=== PATIENT | male | born 1960 | race Caucasian/White ===

== ENCOUNTER 2020-12-12 18:06 | Observation (INO) | payer BC ==
--- NOTE | 2020-12-12 19:17 | CR ---
HISTORY: High blood pressure. Dizziness. COMPARISON: None. FINDINGS: Portable frontal view of the chest. The lungs are clear. No evidence for pneumonia. Heart size and pulmonary vascularity within normal limits. No pleural effusion. The bones are within normal. Dictated by Emmy Nicholas MD @ Dec 12 2020 7:14PM Signed by Dr. Emmy Nicholas @ Dec 12 2020 7:15PM
--- NOTE | 2020-12-12 19:25 | EDM.PDOC ---
<NikThien - Last Filed: 12/12/20 20:07> ED HPI GENERAL MEDICAL PROBLEM - General Chief Complaint: Cardiovascular Problem Stated Complaint: HIGH BLOOD PRESSURE Time Seen by Provider: 12/12/20 18:29 - Related Data Allergies Allergy/AdvReac Type Severity Reaction Status Date / Time amoxicillin Allergy Other Verified 12/12/20 22:35 hydrocodone Allergy Other Verified 12/12/20 22:35 oxycodone Allergy Other Verified 12/12/20 22:35 tramadol Allergy Other Verified 12/12/20 22:35 Home Meds: Home Meds Losartan [Cozaar] 100 mg PO DAILY 12/12/20 [History] Rosuvastatin Calcium 20 mg PO DAILY 12/12/20 [History] amLODIPine [Norvasc] 5 mg PO DAILY 12/12/20 [History] carvediloL [Carvedilol] 6.25 mg PO BID 12/12/20 [History] ED ROS GENERAL - Review of Systems Review Of Systems: See Below ED EXAM, GENERAL - Physical Exam Exam: See Below Departure - Departure Time of Disposition: 20:13 Disposition: Refer to Observation Condition: Good Clinical Impression: Renal insufficiency - Assessment/Plan Assessment:: Patient received in signout from Dr. Barajas at 7 PM. Patient's labs are notable for significant anemia as well as renal insufficiency with an elevated BUN together these raise the possibility of GI bleeding which could be contribu ting to his hypotension. The patient states that he did have significant trouble with bright red blood per rectum a few months ago when he was on a blood thinner. However, since stopping the blood thinner he has had no further perceptible GI bleeding. He denies any melena. He denies any abdominal pain. He denies any current bright red blood per rectum. He notes that he has felt significantly worse over the last few days. Rectal exam is pending. If his rectal exam demonstrates active GI bleed then I think he will require transfer to a higher level of care so that he can be evaluated by a laboratory chemist. If his rectal exam does not demonstrate ongoing active bleeding then would plan to discuss with hospitalist for admission for his renal insufficiency for hydration overnight and reassessment. 2007: DANDY reveals no gross blood or melena, no external or internal hemorrhoids. There was an empty rectal vault resulting guaiac was negative. Pt reports that he last had a colonoscopy 5 years ago. He states that they saw hemorrhoids but no other abnormalities. Given this exam I do not believe he needs emergent 2012: Pt discussed with Dr. Daniels. Will admit for observation, IVF to be started. <Tadeo Barajas - Last Filed: 12/13/20 20:34> ED HPI GENERAL MEDICAL PROBLEM - History of Present Illness INITIAL COMMENTS - FREE TEXT/NARRATIVE: CHIEF COMPLAINT(S): Low blood pressure HISTORY OF PRESENT ILLNESS: This is a 60-year-old man with a past medical history of hypertension who comes to the emergency department with a chief complaint of low blood pressure. The patient states that he has been working with his cardiac urologist because his blood pressure was so high. He states that he takes losartan, amlodipine, and Coreg. He states that approximately 1- 1/2 weeks ago they noticed that his blood pressure was low so we contacted his profiling machine setup operator and they decreased his Coreg to 12.5 mg twice a day. He states that initially when they were trying to lower his blood pressure they placed him on a blood thinner to bring it down and states that it worked. He states that over the last 1 and half weeks he has been feeling weak and has had episodes where he has almost passed out. He denies any chest pain or shortness of breath but states that he does get fatigued when walking. He states he does feel a little lightheaded. He denies any recent travel, recent surgery, prior history of DVT or PE. He states that his profiling machine setup operator told him that if his systolic blood pressure went less than 90 that he needs to be seen in the emergency department that is why he came here. He states that he felt terrible until he sat down here in the emergency department and is feeling better. He states that he does have a significant family history of cardiac disease where his father at age 61 and his mother at 67. In addition multiple other siblings have heart disease. He states that in his personal history does not have any heart disease but in his 30s he had his heart stopped while running on a treadmill. He states that they did a work-up and they do not know what caused that. He denies any fever, chills, cough or shortness of breath. REVIEW OF SYSTEMS: Constitutional: Positive for fatigue and weakness. Denies fever, chills. Eyes: Denies eye pain Ears, Nose, Mouth, & Throat: Denies earache Cardiovascular: Positive for hypotension and presyncope. Respiratory: Denies shortness of breath Gastrointestinal: Denies Nausea, vomiting, diarrhea, hematochezia. Genitourinary: Denies hematuria Skin:Denies a rash Neurological: Denies blurred vision, numbness, tingling, Psychiatric: Denies depression PAST MEDICAL HISTORY: As per history of present illness and as reviewed below otherwise noncontributory. SURGICAL HISTORY: As per history of present illness and as reviewed below otherwise noncontributory. SOCIAL HISTORY: As per history of present illness and as reviewed below otherwise noncontributory. FAMILY HISTORY: As per history of present illness and as reviewed below otherwise noncontributory. EXAMINATION OF ORGAN SYSTEMS/BODY AREAS: Constitutional: Blood pressure was 100/61, heart rate 89, respiratory rate 16 with an oxygen saturation of 96% on room air. Temperature 36.1 General: Overall well-appearing man who is in no acute distress Psychiatric: Appropriate mood and affect. Eyes: No scleral icterus or conjunctival erythema ENMT: Moist mucous membranes. No pharyngeal erythema Cardiovascular: Regular, rate, and rhythm. No gallops, murmurs, or rubs. Bilateral upper extremity pulses symmetric and intact. No peripheral edema. No JVD. Respiratory: Lungs clear to auscultation bilaterally. No wheezes, rales, or rhonchi. Gastrointestinal: Soft, non-tender, non-distended. Normoactive bowel sounds Genitourinary: No suprapubic tenderness Musculoskeletal: Normal range of motion. Skin: No lesions or abrasions. Neurological: Alert, GCS 15 MEDICAL DECISION MAKING AND COURSE IN THE ED WITH INTERPRETATION/REVIEW OF DIAGNOSTIC STUDIES: This is a 60-year-old man with a past medical history of hypertension and a significant family history of cardiac disease who comes to the emergency department with hypotension with episodes of weakness and presyncope. At this time given his family history and his prior history of possible heart stopping on a treadmill we will obtain a cardiac work-up. His blood pressure has normalized now therefore we will just place the patient on cardiac monitoring and pulse oximetry and evaluate his blood pressure while he is here. Will obtain CBC, BMP troponin, chest x-ray. Twelve-lead EKG interpreted by myself. Normal sinus rhythm at a rate of 89 beats per minute. Normal axis. NC interval is 176 ms. QRS duration is [address] segments are normal without elevations or depressions. No Q waves present. Hypertrophy not noted. No prior EKGs. Interpretation: Normal sinus rhythm Laboratory: CBC reveals a normocytic anemia with a hemoglobin of 8.2 and hematocrit of 25.8. After CBC I did have a discussion with the patient. He states that when he was on blood thinners he had bleeding from his hemorrhoids. He states that he has never been admitted for a GI bleed and he currently denies any melena or hematochezia or hematemesis. He states that he has never had a blood transfusion. He states that since stopping the blood thinner he has not had any bleeding. The last time he had any hemorrhoidal bleeding was 10 days ago. DISPOSITION: Patient was signed out to [facility] team physician Dr. Zaragoza pending further work-up and disposition CONDITION: Fair PROCEDURES: None FINAL IMPRESSION(S)/DIAGNOSES: 1. Acute presyncope likely secondary to hypertension medication 2. Anemia Tadeo Barajas M.D. Past Medical History Cardiovascular History: Reports: Hypertension - Infectious Disease History Infectious Disease History: Reports: Chicken Pox Social & Family History - Tobacco Use Tobacco Use Status *Q: Never Tobacco User - Recreational Drug Use Recreational Drug Use: No Course - Vital Signs Last Recorded V/S: Last Vital Signs Temp 37.0 C 12/13/20 17:27 Pulse 91 12/13/20 17:27 Resp 16 12/13/20 17:27 BP 136/75 12/13/20 17:27 Pulse Ox 95 12/13/20 17:27 - Orders/Labs/Meds Orders: Active Orders 24 hr Category Date Time Status Sodium Chloride 0.9% [Normal Saline] 1,000 ml Med 12/12/20 20:15 Active IV ASDIRECTED Medication Orders Sodium Chloride (Normal Saline) 1,000 mls @ 150 mls/hr IV ASDIRECTED BRIAN Last Admin: 12/13/20 17:49 Dose: 150 mls/hr Documented by: Infusion: 12/13/20 17:49 Dose: 150 mls/hr Documented by: Admin: 12/13/20 11:51 Dose: 150 mls/hr Documented by: Infusion: 12/13/20 11:51 Dose: 150 mls/hr Documented by: Admin: 12/13/20 05:33 Dose: 150 mls/hr Documented by: Infusion: 12/13/20 05:32 Dose: 150 mls/hr Documented by: Infusion: 12/13/20 02:00 Dose: 150 mls/hr Documented by: Infusion: 12/13/20 01:16 Dose: 100 mls/hr Documented by: Infusion: 12/13/20 00:15 Dose: 0 mls/hr Documented by: Admin: 12/12/20 20:17 Dose: 100 mls/hr Documented by: JOSÉ MANUEL Pantoprazole Sodium 40 mg/ (Sodium Chloride) 10 mls @ 300 mls/hr IV Q12H BRIAN Last Admin: 12/13/20 11:44 Dose: 300 mls/hr Documented by: Infusion: 12/13/20 00:18 Dose: 300 mls/hr Documented by: Admin: 12/13/20 00:16 Dose: 300 mls/hr Documented by: EMILEE Rosuvastatin Calcium (Crestor) 20 mg PO BEDTIME [facility] Labs: Laboratory Tests 12/12/20 12/12/20 12/12/20 Range/Units 19:00 19:00 19:00 WBC (4.0-11.0) K/uL RBC (4.50-5.90) M/uL Hgb (13.0-17.0) g/dL Hct (38.0-50.0) % MCV (80.0-98.0) fL MCH (27.0-32.0) pg MCHC (31.0-37.0) g/dL RDW Std Deviation (28.0-62.0) fl RDW Coeff of Andreia (11.0-15.0) % Plt Count (150-400) K/uL MPV (7.40-12.00) fL Neut % (Auto) (48.0-80.0) % Lymph % (Auto) (16.0-40.0) % Pender % (Auto) (0.0-15.0) % Eos % (Auto) (0.0-7.0) % Baso % (Auto) (0.0-1.5) % Neut # (Auto) (1.4-5.7) K/uL Lymph # (Auto) (0.6-2.4) K/uL Pender # (Auto) (0.0-0.8) K/uL Eos # (Auto) (0.0-0.7) K/uL Baso # (Auto) (0.0-0.1) K/uL Nucleated RBC % /100WBC Nucleated RBCs # K/uL INR 0.97 Sodium 135 L (136-148) mmol/L Potassium 3.8 (3.5-5.1) mmol/L Chloride 100 (98-107) mmol/L Carbon Dioxide 21.7 (21.0-32.0) mmol/L BUN 27 H (7.0-18.0) mg/dL Creatinine 2.2 H (0.8-1.3) mg/dL Est Cr Clr Drug Dosing 31.45 mL/min Estimated GFR (MDRD) 30.8 ml/min Glucose 98 (74-106) mg/dL Calcium 10.1 (8.5-10.1) mg/dL Troponin I < 0.050 (0.000-0.056) ng/mL Blood Type O POSITIVE Antibody Screen NEGATIVE 12/12/20 Range/Units 19:05 WBC 6.88 (4.0-11.0) K/uL RBC 2.92 L (4.50-5.90) M/uL Hgb 8.2 L (13.0-17.0) g/dL Hct 25.8 L (38.0-50.0) % MCV 88.4 (80.0-98.0) fL MCH 28.1 (27.0-32.0) pg MCHC 31.8 (31.0-37.0) g/dL RDW Std Deviation 48.7 (28.0-62.0) fl RDW Coeff of Andreia 15 (11.0-15.0) % Plt Count 241 (150-400) K/uL MPV 8.90 (7.40-12.00) fL Neut % (Auto) 63.1 (48.0-80.0) % Lymph % (Auto) 17.9 (16.0-40.0) % Pender % (Auto) 14.5 (0.0-15.0) % Eos % (Auto) 3.8 (0.0-7.0) % Baso % (Auto) 0.7 (0.0-1.5) % Neut # (Auto) 4.3 (1.4-5.7) K/uL Lymph # (Auto) 1.2 (0.6-2.4) K/uL Pender # (Auto) 1.0 H (0.0-0.8) K/uL Eos # (Auto) 0.3 (0.0-0.7) K/uL Baso # (Auto) 0.1 (0.0-0.1) K/uL Nucleated RBC % 0.0 /100WBC Nucleated RBCs # 0 K/uL INR Sodium (136-148) mmol/L Potassium (3.5-5.1) mmol/L Chloride (98-107) mmol/L Carbon Dioxide (21.0-32.0) mmol/L BUN (7.0-18.0) mg/dL Creatinine (0.8-1.3) mg/dL Est Cr Clr Drug Dosing mL/min Estimated GFR (MDRD) ml/min Glucose (74-106) mg/dL Calcium (8.5-10.1) mg/dL Troponin I (0.000-0.056) ng/mL Blood Type Antibody Screen Meds: Medications Generic Name Dose Route Start Last Admin Trade Name Freq PRN Reason Stop Dose Admin Sodium Chloride 1,000 mls @ 150 mls/hr 12/12/20 20:15 12/13/20 17:49 Normal Saline IV 150 mls/hr ASDIRECTED BRIAN Administration Pantoprazole Sodium 40 mg/ 10 mls @ 300 mls/hr 12/12/20 23:45 12/13/20 11:44 Sodium Chloride IV 300 mls/hr Q12H BRIAN Administration Rosuvastatin Calcium 20 mg 12/13/20 21:00 Crestor PO BEDTIME BRIAN Discontinued Medications Generic Name Dose Route Start Last Admin Trade Name Freq PRN Reason Stop Dose Admin Sodium Chloride 1,000 mls @ 999 mls/hr 12/12/20 23:38 12/13/20 00:15 Normal Saline IV 12/13/20 00:38 999 mls/hr .Bolus ONE Administration Rosuvastatin Calcium 20 mg 12/13/20 09:00 12/13/20 08:57 Crestor PO Not Given DAILY BRIAN Sepsis Event Note (ED) - Evaluation Sepsis Screening Result: No Definite Risk
[2020-12-12 19:42] LABS: BLOOD UREA NITROGEN,BUN 27 mg/dL (7.0-18.0); CARBON DIOXIDE,CO2 21.7 mmol/L (21.0-32.0); CHLORIDE,CL 100 mmol/L (98-107); GLUCOSE RANDOM 98 mg/dL (74-106); POTASSIUM,K 3.8 mmol/L (3.5-5.1); SODIUM,NA 135 mmol/L (136-148)
[2020-12-12] MEDS: Sodium Chloride 0.9% 1,000 ML IV SCH (20:17)
[2020-12-12] MEDS ORDERED: Sodium Chloride 0.9% 1,000 ML IV ONE (23:38)
--- NOTE | 2020-12-12 23:49 | PCM.HP.2 ---
H&P History of Present Illness - General Date of Service: 12/12/20 Admit Problem/Dx: Admission Diagnosis/Problem Admission Diagnosis/Problem Renal insufficiency - History of Present Illness Initial Comments - Free Text/Narative: 60 yo male with pmh of hypertension who presented to the ED with complaints of low blood pressure and fatigue. Patient reports three weeks ago passing out and noting low blood pressures in the 100s systolic. He called his applied exercise physiologist who told him to cut his carvedolol 12.5mg to 6.25mg BID. He was on a plavix but this was also stopped about three weeks ago due to blood in his stool. Patient also reports a history bleeding hemorrhoids. Patient reports he has not had any blood in his stool for over ten days. In the ED he was noted to have a blood pressure in the 90-100s systolic and a Hgb of 8 - Related Data Allergies/Adverse Reactions: Allergies Allergy/AdvReac Type Severity Reaction Status Date / Time amoxicillin Allergy Other Verified 12/12/20 22:35 hydrocodone Allergy Other Verified 12/12/20 22:35 oxycodone Allergy Other Verified 12/12/20 22:35 tramadol Allergy Other Verified 12/12/20 22:35 Home Medications: Home Meds Losartan [Cozaar] 100 mg PO DAILY 12/12/20 [History] Rosuvastatin Calcium 20 mg PO DAILY 12/12/20 [History] amLODIPine [Norvasc] 5 mg PO DAILY 12/12/20 [History] carvediloL [Carvedilol] 6.25 mg PO BID 12/12/20 [History] Past Medical History Cardiovascular History: Reports: High Cholesterol, Hypertension - Infectious Disease History Infectious Disease History: Reports: Chicken Pox - Past Surgical History Cardiovascular Surgical History: Reports: None Social & Family History - Family History Cardiac: Reports: High Cholesterol, Hypertension - Tobacco Use Tobacco Use Status *Q: Former Tobacco User Used Tobacco, but Quit: Yes Month/Year Tobacco Last Used: June 2019 Second Hand Smoke Exposure: No - Caffeine Use Caffeine Use: Reports: Coffee, Energy Drinks, Other Other Caffeine Use: zero sugar soda - Alcohol Use Days Per Week of Alcohol Use: 4 Number of Drinks Per Day: 2 Total Drinks Per Week: 8 Date of Last Drink: 12/12/20 Time of Last Drink: 16:00 - Recreational Drug Use Recreational Drug Use: No H&P Review of Systems - Review of Systems: Review Of Systems: Comprehensive ROS is negative, except as noted in HPI. Exam - Exam Exam: See Below - Vital Signs Vital Signs: Last Vital Signs Temp 36.7 C 12/12/20 22:18 Pulse 90 12/12/20 22:18 Resp 16 12/12/20 22:18 BP 107/71 12/12/20 22:18 Pulse Ox 97 12/12/20 22:18 Weight: 87.6 kg - Exam General: Alert, Oriented HEENT: Mucosa Moist & [place] Lungs: Clear to Auscultation, Normal Respiratory Effort Cardiovascular: Regular Rate, Regular Rhythm GI/Abdominal Exam: Normal Bowel Sounds, Soft, Non-Tender Extremities: Non-Tender, No Pedal Edema Skin: Warm, Dry, Intact - Patient Data Lab Results Last 24 hrs: Laboratory Results - last 24 hr 12/12/20 12/12/20 12/12/20 Range/Units 19:00 19:00 19:00 WBC (4.0-11.0) K/uL RBC (4.50-5.90) M/uL Hgb (13.0-17.0) g/dL Hct (38.0-50.0) % MCV (80.0-98.0) fL MCH (27.0-32.0) pg MCHC (31.0-37.0) g/dL RDW Std Deviation (28.0-62.0) fl RDW Coeff of Andreia (11.0-15.0) % Plt Count (150-400) K/uL MPV (7.40-12.00) fL Neut % (Auto) (48.0-80.0) % Lymph % (Auto) (16.0-40.0) % [place] % (Auto) (0.0-15.0) % Eos % (Auto) (0.0-7.0) % Baso % (Auto) (0.0-1.5) % Neut # (Auto) (1.4-5.7) K/uL Lymph # (Auto) (0.6-2.4) K/uL [place]undy # (Auto) (0.0-0.8) K/uL Eos # (Auto) (0.0-0.7) K/uL Baso # (Auto) (0.0-0.1) K/uL Nucleated RBC % /100WBC Nucleated RBCs # K/uL INR 0.97 Sodium 135 L (136-148) mmol/L Potassium 3.8 (3.5-5.1) mmol/L Chloride 100 (98-107) mmol/L Carbon Dioxide 21.7 (21.0-32.0) mmol/L BUN 27 H (7.0-18.0) mg/dL Creatinine 2.2 H (0.8-1.3) mg/dL Est Cr Clr Drug Dosing 31.45 mL/min Estimated GFR (MDRD) 30.8 ml/min Glucose 98 (74-106) mg/dL Calcium 10.1 (8.5-10.1) mg/dL Troponin I < 0.050 (0.000-0.056) ng/mL SARS-CoV-2 RNA (JO) (NEGATIVE) Blood Type O POSITIVE Antibody Screen NEGATIVE 12/12/20 12/12/20 Range/Units 19:05 20:20 WBC 6.88 (4.0-11.0) K/uL RBC 2.92 L (4.50-5.90) M/uL Hgb 8.2 L (13.0-17.0) g/dL Hct 25.8 L (38.0-50.0) % MCV 88.4 (80.0-98.0) fL MCH 28.1 (27.0-32.0) pg MCHC 31.8 (31.0-37.0) g/dL RDW Std Deviation 48.7 (28.0-62.0) fl RDW Coeff of Andreia 15 (11.0-15.0) % Plt Count 241 (150-400) K/uL MPV 8.90 (7.40-12.00) fL Neut % (Auto) 63.1 (48.0-80.0) % Lymph % (Auto) 17.9 (16.0-40.0) % [place] % (Auto) 14.5 (0.0-15.0) % Eos % (Auto) 3.8 (0.0-7.0) % Baso % (Auto) 0.7 (0.0-1.5) % Neut # (Auto) 4.3 (1.4-5.7) K/uL Lymph # (Auto) 1.2 (0.6-2.4) K/uL [place] # (Auto) 1.0 H (0.0-0.8) K/uL Eos # (Auto) 0.3 (0.0-0.7) K/uL Baso # (Auto) 0.1 (0.0-0.1) K/uL Nucleated RBC % 0.0 /100WBC Nucleated RBCs # 0 K/uL INR Sodium (136-148) mmol/L Potassium (3.5-5.1) mmol/L Chloride (98-107) mmol/L Carbon Dioxide (21.0-32.0) mmol/L BUN (7.0-18.0) mg/dL Creatinine (0.8-1.3) mg/dL Est Cr Clr Drug Dosing mL/min Estimated GFR (MDRD) ml/min Glucose (74-106) mg/dL Calcium (8.5-10.1) mg/dL Troponin I (0.000-0.056) ng/mL SARS-CoV-2 RNA (JO) NEGATIVE (NEGATIVE) Blood Type Antibody Screen Result Diagrams: 12/13/20 05:50 12/13/20 05:50 Sepsis Event Note - Evaluation Sepsis Screening Result: No Definite Risk - Focused Exam Vital Signs: Vital Signs Temp Pulse Resp BP Pulse Ox 12/12/20 22:18 36.7 C 90 16 107/71 97 12/12/20 21:35 36.4 C 96 16 88/51 L 94 L 12/12/20 20:52 88 16 103/62 95 12/12/20 20:20 86 16 102/63 97 12/12/20 18:48 100/61 12/12/20 18:25 36.1 C 89 16 97/59 L 96 Problem List Initiated/Reviewed/Updated: Yes Orders Last 24hrs: Active Orders 24 hr Category Date Time Status Patient Status [ADT] Routine ADT 12/12/20 20:13 Active Antiembolic Devices [RC] PER UNIT ROUTINE Care 12/12/20 23:41 Ordered Oxygen Therapy [RC] PRN Care 12/12/20 23:40 Ordered VTE/DVT Education [RC] PER UNIT ROUTINE Care 12/12/20 23:40 Ordered Vital Signs [RC] Q4H Care 12/12/20 23:40 Ordered Regular Diet [DIET] Diet 12/12/20 Breakfast Ordered CBC WITH AUTO DIFF [HEME] AM Lab 12/13/20 05:11 Ordered COMPREHENSIVE METABOLIC PN,CMP [CHEM] AM Lab 12/13/20 05:11 Ordered Sodium Chloride 0.9% [Normal Saline] 1,000 ml Med 12/12/20 23:38 Ordered IV .Bolus Sodium Chloride 0.9% [Normal Saline] 1,000 ml Med 12/12/20 20:15 Active IV ASDIRECTED Sequential Compression Device [OM.PC] Per Unit Routine Oth 12/12/20 23:41 Ordered Resuscitation Status Routine Resus Stat 12/12/20 23:40 Ordered Medication Orders Sodium Chloride (Normal Saline) 1,000 mls @ 150 mls/hr IV ASDIRECTED BRIAN Last Admin: 12/12/20 20:17 Dose: 100 mls/hr Documented by: JOSÉ MANUEL Sodium Chloride (Normal Saline) 1,000 mls @ 999 mls/hr IV .Bolus ONE Stop: 12/13/20 00:38 Assessment/Plan Comment:: 60 yo male admitted for hypotension and anemia. I don't suspect acute bleed or infection. We will hydrate with IV fluids and trend CBC. Will place on Protonix empirically. Suspect hypotension from antihypertensive medications. Will hold antihypertension.
[2020-12-13] MEDS: Pantoprazole 40 MG in Sodium Chloride 0.9% 10 ML IV SCH ×3 (00:16→23:28)
[2020-12-13] MEDS: Sodium Chloride 0.9% 1,000 ML IV SCH ×3 (05:33→17:49)
[2020-12-13 06:49] LABS: CARBON DIOXIDE,CO2 22.4 mmol/L (21.0-32.0); POTASSIUM,K 4.2 mmol/L (3.5-5.1)
[2020-12-13] MEDS ORDERED: Rosuvastatin 10 MG Tab PO SCH ×2 (09:00→21:00)
--- NOTE | 2020-12-13 13:08 | PCM.PN ---
- General Info Date of Service: 12/13/20 Subjective Update: Bedside: no acute distress. Mentions no dizziness. Denies blood in stool or CP, SOB or ELLIS. Functional Status: Reports: Pain Controlled - Review of Systems General: Reports: No Symptoms HEENT: Reports: No Symptoms Pulmonary: Reports: No Symptoms Cardiovascular: Reports: No Symptoms Gastrointestinal: Reports: No Symptoms. Denies: Melena, Nausea, Vomiting Genitourinary: Reports: No Symptoms Neurological: Reports: No Symptoms. Denies: Dizziness, Headache - Patient Data Vitals - Most Recent: Last Vital Signs Temp 98.7 F 12/13/20 12:57 Pulse 85 12/13/20 12:57 Resp 16 12/13/20 12:57 BP 118/81 12/13/20 12:57 Pulse Ox 95 12/13/20 12:57 Weight - Most Recent: 87.6 kg I&O - Last 24 Hours: Intake & Output 12/12/20 12/13/20 12/13/20 22:59 06:59 14:59 Intake Total 2660 Output Total 1900 Balance 760 Lab Results Last 24 Hours: Laboratory Results - last 24 hr 12/12/20 12/12/20 12/12/20 Range/Units 19:00 19:00 19:00 WBC (4.0-11.0) K/uL RBC (4.50-5.90) M/uL Hgb (13.0-17.0) g/dL Hct (38.0-50.0) % MCV (80.0-98.0) fL MCH (27.0-32.0) pg MCHC (31.0-37.0) g/dL RDW Std Deviation (28.0-62.0) fl RDW Coeff of Andreia (11.0-15.0) % Plt Count (150-400) K/uL MPV (7.40-12.00) fL Neut % (Auto) (48.0-80.0) % Lymph % (Auto) (16.0-40.0) % [place] % (Auto) (0.0-15.0) % Eos % (Auto) (0.0-7.0) % Baso % (Auto) (0.0-1.5) % Neut # (Auto) (1.4-5.7) K/uL Lymph # (Auto) (0.6-2.4) K/uL [place] # (Auto) (0.0-0.8) K/uL Eos # (Auto) (0.0-0.7) K/uL Baso # (Auto) (0.0-0.1) K/uL Nucleated RBC % /100WBC Nucleated RBCs # K/uL INR 0.97 Sodium 135 L (136-148) mmol/L Potassium 3.8 (3.5-5.1) mmol/L Chloride 100 (98-107) mmol/L Carbon Dioxide 21.7 (21.0-32.0) mmol/L BUN 27 H (7.0-18.0) mg/dL Creatinine 2.2 H (0.8-1.3) mg/dL Est Cr Clr Drug Dosing 31.45 mL/min Estimated GFR (MDRD) 30.8 ml/min Glucose 98 (74-106) mg/dL Calcium 10.1 (8.5-10.1) mg/dL Total Bilirubin (0.2-1.0) mg/dL AST (15-37) IU/L ALT (14-63) IU/L Alkaline Phosphatase (46-116) U/L Troponin I < 0.050 (0.000-0.056) ng/mL Total Protein (6.4-8.2) g/dL Albumin (3.4-5.0) g/dL Globulin (2.6-4.0) g/dL Albumin/Globulin Ratio (0.9-1.6) SARS-CoV-2 RNA (JO) (NEGATIVE) Blood Type O POSITIVE Antibody Screen NEGATIVE 12/12/20 12/12/20 12/13/20 Range/Units 19:05 20:20 05:50 WBC 6.88 6.05 (4.0-11.0) K/uL RBC 2.92 L 2.88 L (4.50-5.90) M/uL Hgb 8.2 L 8.0 L (13.0-17.0) g/dL Hct 25.8 L 25.6 L (38.0-50.0) % MCV 88.4 88.9 (80.0-98.0) fL MCH 28.1 27.8 (27.0-32.0) pg MCHC 31.8 31.3 (31.0-37.0) g/dL RDW Std Deviation 48.7 48.6 (28.0-62.0) fl RDW Coeff of Andreia 15 15 (11.0-15.0) % Plt Count 241 231 (150-400) K/uL MPV 8.90 9.90 (7.40-12.00) fL Neut % (Auto) 63.1 67.6 (48.0-80.0) % Lymph % (Auto) 17.9 14.5 L (16.0-40.0) % [place] % (Auto) 14.5 14.4 (0.0-15.0) % Eos % (Auto) 3.8 3.0 (0.0-7.0) % Baso % (Auto) 0.7 0.5 (0.0-1.5) % Neut # (Auto) 4.3 4.1 (1.4-5.7) K/uL Lymph # (Auto) 1.2 0.9 (0.6-2.4) K/uL [place] # (Auto) 1.0 H 0.9 H (0.0-0.8) K/uL Eos # (Auto) 0.3 0.2 (0.0-0.7) K/uL Baso # (Auto) 0.1 0.0 (0.0-0.1) K/uL Nucleated RBC % 0.0 0.0 /100WBC Nucleated RBCs # 0 0 K/uL INR Sodium (136-148) mmol/L Potassium (3.5-5.1) mmol/L Chloride (98-107) mmol/L Carbon Dioxide (21.0-32.0) mmol/L BUN (7.0-18.0) mg/dL Creatinine (0.8-1.3) mg/dL Est Cr Clr Drug Dosing mL/min Estimated GFR (MDRD) ml/min Glucose (74-106) mg/dL Calcium (8.5-10.1) mg/dL Total Bilirubin (0.2-1.0) mg/dL AST (15-37) IU/L ALT (14-63) IU/L Alkaline Phosphatase (46-116) U/L Troponin I (0.000-0.056) ng/mL Total Protein (6.4-8.2) g/dL Albumin (3.4-5.0) g/dL Globulin (2.6-4.0) g/dL Albumin/Globulin Ratio (0.9-1.6) SARS-CoV-2 RNA (JO) NEGATIVE (NEGATIVE) Blood Type Antibody Screen 12/13/20 Range/Units 05:50 WBC (4.0-11.0) K/uL RBC (4.50-5.90) M/uL Hgb (13.0-17.0) g/dL Hct (38.0-50.0) % MCV (80.0-98.0) fL MCH (27.0-32.0) pg MCHC (31.0-37.0) g/dL RDW Std Deviation (28.0-62.0) fl RDW Coeff of Andreia (11.0-15.0) % Plt Count (150-400) K/uL MPV (7.40-12.00) fL Neut % (Auto) (48.0-80.0) % Lymph % (Auto) (16.0-40.0) % [place] % (Auto) (0.0-15.0) % Eos % (Auto) (0.0-7.0) % Baso % (Auto) (0.0-1.5) % Neut # (Auto) (1.4-5.7) K/uL Lymph # (Auto) (0.6-2.4) K/uL [place] # (Auto) (0.0-0.8) K/uL Eos # (Auto) (0.0-0.7) K/uL Baso # (Auto) (0.0-0.1) K/uL Nucleated RBC % /100WBC Nucleated RBCs # K/uL INR Sodium 141 (136-148) mmol/L Potassium 4.2 (3.5-5.1) mmol/L Chloride 105 (98-107) mmol/L Carbon Dioxide 22.4 (21.0-32.0) mmol/L BUN 23 H (7.0-18.0) mg/dL Creatinine 1.9 H (0.8-1.3) mg/dL Est Cr Clr Drug Dosing 36.41 mL/min Estimated GFR (MDRD) 36.5 ml/min Glucose 90 (74-106) mg/dL Calcium 9.3 (8.5-10.1) mg/dL Total Bilirubin 0.5 (0.2-1.0) mg/dL AST 66 H (15-37) IU/L ALT 61 (14-63) IU/L Alkaline Phosphatase 56 (46-116) U/L Troponin I (0.000-0.056) ng/mL Total Protein 6.9 (6.4-8.2) g/dL Albumin 3.4 (3.4-5.0) g/dL Globulin 3.5 (2.6-4.0) g/dL Albumin/Globulin Ratio 1.0 (0.9-1.6) SARS-CoV-2 RNA (JO) (NEGATIVE) Blood Type Antibody Screen Brigido Results Last 24 Hours: Microbiology 12/13/20 09:50 Stool Occult Blood (BRIGIDO) - Final Stool / Feces Med Orders - Current: Current Medications Sodium Chloride (Normal Saline) 1,000 mls @ 150 mls/hr IV ASDIRECTED [facility] Last Admin: 12/13/20 11:51 Dose: 150 mls/hr Documented by: Pantoprazole Sodium 40 mg/ (Sodium Chloride) 10 mls @ 300 mls/hr IV Q12H [facility] Last Admin: 12/13/20 11:44 Dose: 300 mls/hr Documented by: Rosuvastatin Calcium (Crestor) 20 mg PO BEDTIME BRIAN Discontinued Medications Sodium Chloride (Normal Saline) 1,000 mls @ 999 mls/hr IV .Bolus ONE Stop: 12/13/20 00:38 Last Admin: 12/13/20 00:15 Dose: 999 mls/hr Documented by: Rosuvastatin Calcium (Crestor) 20 mg PO DAILY [facility] Last Admin: 12/13/20 08:57 Dose: Not Given Documented by: - Exam Quality Assessment: No: Supplemental Oxygen General: Alert, Oriented HEENT: Mucous Membr. Moist/[place] Neck: Supple, Other Lungs: Clear to Auscultation Cardiovascular: Regular Rate, Regular Rhythm GI/Abdominal Exam: Normal Bowel Sounds, Soft, Non-Tender Extremities: Normal Inspection Neurological: No New Focal Deficit Psy/Mental Status: Alert, Normal Affect, Normal Mood Sepsis Event Note - Evaluation Sepsis Screening Result: No Definite Risk - Focused Exam Vital Signs: Vital Signs Temp Pulse Resp BP Pulse Ox 12/13/20 12:57 98.7 F 85 16 118/81 95 12/13/20 12:00 98.7 F 85 16 118/81 95 12/13/20 08:17 98.3 F 96 16 108/70 95 12/13/20 04:00 98.9 F 96 18 113/77 97 - Problem List & Annotations (1) Renal insufficiency SNOMED Code(s): 466070557, 147203099 Code(s): N28.9 - DISORDER OF KIDNEY AND URETER, UNSPECIFIED Status: Acute Current Visit: Yes - Problem List Review Problem List Initiated/Reviewed/Updated: Yes - My Orders Last 24 Hours: My Active Orders 12/13/20 21:00 Rosuvastatin [Crestor] 20 mg PO BEDTIME - Plan Plan:: 60 yo male admitted for hypotension and anemia. 1. BP improving w. discontinuation of BP meds and receiving IV fluids. Orthostatics WNL and patient clinically stable. 2. SHANNAN improving: possibly secondary to continual BP meds/hypotension and dehydration; improving compared to admission; recheck in AM Continue IV fluids at 150 cc/hr 3. Normocytic anemia: stable at 8.0; no acute bleeds. Stool occult ordered. pt discontinued Plavix 15 days prior. Last colonoscopy 5 years ago; polypectomy but no indictions for any major pathologies. Recheck CBC in AM. Clinically stable at this time. PT to evaluate for dizziness/balance.
[2020-12-14] MEDS: Sodium Chloride 0.9% 1,000 ML IV SCH (00:43)
[2020-12-14 07:59] LABS: CARBON DIOXIDE,CO2 20.9 mmol/L (21.0-32.0); POTASSIUM,K 3.9 mmol/L (3.5-5.1)
--- NOTE | 2020-12-14 10:51 | PCM.DCSUM1 ---
Discharge Summary - Discharge Data Discharge Date: 12/14/20 Discharge Disposition: Home, Self-Care 01 Condition: Good - Referral to Home Health Primary Care Physician: Flora Snell NP - Patient Summary/Data Consults: Consultations 12/13/20 13:09 Consult to Physical Therapy [PT Evaluation and Treatment] [CONS] Routine Hospital Course: 60 yo male with pmh of hypertension and coronary artery disease who presented to the ED with complaints of low blood pressure and fatigue. Patient reports three weeks ago passing out and noting low blood pressures in the 100s systolic. He called his public health nurse who told him to cut his carvedolol 12.5mg to 6.25mg BID. He was on a plavix but this was also stopped about three weeks ago due to blood in his stool. Patient also reports a history bleeding hemorrhoids. Patient reports he has not had any blood in his stool for over ten days. In the ED he was noted to have a blood pressure in the 90-100s systolic and a Hgb of 8. Hemoccult stool was negative. Creatinine was 2.2. Patient was admitted for low blood pressure and acute kidney injury. His antihypertensive medications were stopped and he was given IV fluids. His symptoms resolved and his creatinine improved to 1.8. His Hgb remained stable. He was discharged home to have follow up with his PCP. - Discharge Plan Prescriptions/Med Rec: Omeprazole Magnesium [Prilosec Otc] 20 mg PO DAILY #30 tab Home Medications: Home Meds Rosuvastatin Calcium 20 mg PO DAILY 12/12/20 [History] Omeprazole Magnesium [Prilosec Otc] 20 mg PO DAILY #30 tab 12/14/20 [Rx] Forms: ED Department Discharge Referrals: Carlos Reece MD [Physician] - Dayanara Knight MD [Physician] - Geni Dempsey NP [Nurse Practitioner] - 12/27/20 4:30 pm - Discharge Summary/Plan Comment DC Time >30 min.: No - Patient Data Vitals - Most Recent: Last Vital Signs Temp 36.4 C 12/14/20 07:54 Pulse 85 12/14/20 07:54 Resp 22 H 12/14/20 07:54 BP 141/86 H 12/14/20 07:54 Pulse Ox 97 12/14/20 07:54 Weight - Most Recent: 87.6 kg I&O - Last 24 hours: Intake & Output 12/13/20 12/14/20 12/14/20 22:59 06:59 14:59 Intake Total 2420 540 Output Total 8752 4431 Balance 695 -1960 Lab Results - Last 24 hrs: Laboratory Results - last 24 hr 12/14/20 12/14/20 Range/Units 07:00 07:00 WBC 4.76 (4.0-11.0) K/uL RBC 2.89 L (4.50-5.90) M/uL Hgb 8.0 L (13.0-17.0) g/dL Hct 25.7 L (38.0-50.0) % MCV 88.9 (80.0-98.0) fL MCH 27.7 (27.0-32.0) pg MCHC 31.1 (31.0-37.0) g/dL RDW Std Deviation 47.6 (28.0-62.0) fl RDW Coeff of Andreia 15 (11.0-15.0) % Plt Count 211 (150-400) K/uL MPV 9.90 (7.40-12.00) fL Neut % (Auto) 57.9 (48.0-80.0) % Lymph % (Auto) 20.8 (16.0-40.0) % [place] % (Auto) 14.7 (0.0-15.0) % Eos % (Auto) 5.5 (0.0-7.0) % Baso % (Auto) 1.1 (0.0-1.5) % Neut # (Auto) 2.8 (1.4-5.7) K/uL Lymph # (Auto) 1.0 (0.6-2.4) K/uL [place] # (Auto) 0.7 (0.0-0.8) K/uL Eos # (Auto) 0.3 (0.0-0.7) K/uL Baso # (Auto) 0.1 (0.0-0.1) K/uL Nucleated RBC % 0.0 /100WBC Nucleated RBCs # 0 K/uL Sodium 141 (136-148) mmol/L Potassium 3.9 (3.5-5.1) mmol/L Chloride 108 H (98-107) mmol/L Carbon Dioxide 20.9 L (21.0-32.0) mmol/L BUN 13 (7.0-18.0) mg/dL Creatinine 1.8 H (0.8-1.3) mg/dL Est Cr Clr Drug Dosing 38.44 mL/min Estimated GFR (MDRD) 38.8 ml/min Glucose 104 (74-106) mg/dL Calcium 9.4 (8.5-10.1) mg/dL GREGORY Results - Last 24 hrs: Microbiology 12/13/20 09:50 Stool Occult Blood (GREGORY) - Final Stool / Feces Med Orders - Current: Current Medications Sodium Chloride (Normal Saline) 1,000 mls @ 150 mls/hr IV ASDIRECTED [facility] Last Admin: 12/14/20 00:43 Dose: 150 mls/hr Documented by: Pantoprazole Sodium 40 mg/ (Sodium Chloride) 10 mls @ 300 mls/hr IV Q12H [facility] Last Admin: 12/13/20 23:28 Dose: 300 mls/hr Documented by: Rosuvastatin Calcium (Crestor) 20 mg PO BEDTIME [facility] Last Admin: 12/13/20 20:58 Dose: 20 mg Documented by: Discontinued Medications Sodium Chloride (Normal Saline) 1,000 mls @ 999 mls/hr IV .Bolus ONE Stop: 12/13/20 00:38 Last Admin: 12/13/20 00:15 Dose: 999 mls/hr Documented by: Rosuvastatin Calcium (Crestor) 20 mg PO DAILY [facility] Last Admin: 12/13/20 08:57 Dose: Not Given Documented by:
== END 2020-12-14 11:45 | disposition home or self-care (01) ==
LOC: MW.ED 18:06 → MW.MS 20:13
PROVIDERS: ADMIT Internal Medicine; ATTEND Internal Medicine
DX: I95.9 Hypotension, unspecified (principal); I10 Essential (primary) hypertension; E78.00 Pure hypercholesterolemia, unspecified; D64.9 Anemia, unspecified; I25.10 Atherosclerotic heart disease of native coronary artery without angina pectoris; Z20.822 Contact with and (suspected) exposure to COVID-19; Z88.1 Allergy status to other antibiotic agents; Z88.5 Allergy status to narcotic agent; Z88.8 Allergy status to other drugs, medicaments and biological substances; Z79.899 Other long term (current) drug therapy
CPT/HCPCS: 36415; 71045; 80048; 80053; 82272; 84484; 85025; 85610; 86850; 86900; 86901; 87635; 93005; 96374; 96376; 99285; A9270; C9113; G0378; J7030; 93010; U0002

== ENCOUNTER 2021-01-14 07:58 | Day surgery (SDC) | payer BC ==
[~2021-01-14 07:58] MED LIST: Lactated Ringers 1,000 ML IV SCH; Lidocaine 2% 5 ML SDV ONE; Propofol 200 MG/20 ML SDV ONE
--- NOTE | 2021-01-14 08:35 | PCM.PREANE ---
Preanesthetic Assessment - Anesthesia/Transfusion/Family Hx Anesthesia History: Prior Anesthesia Without Reaction Family History of Anesthesia Reaction: No Transfusion History: No Prior Transfusion(s) - Review of Systems General: No Symptoms Pulmonary: No Symptoms Cardiovascular: No Symptoms Neurological: No Symptoms Other: Reports: None - Physical Assessment NPO Status Date: 01/13/21 Vital Signs: Last Vital Signs Temp 97.2 F 01/14/21 08:10 Pulse 92 01/14/21 08:10 Resp 16 01/14/21 08:10 BP 163/93 H 01/14/21 08:10 Pulse Ox 96 01/14/21 08:10 Height: 5 ft 5 in Weight: 88.451 kg ASA Class: 2 Mental Status: Alert & Oriented x3 Airway Class: Mallampati = 2 Dentition: Reports: Normal Dentition ROM/Head Extension: Full Lungs: Clear to Auscultation, Normal Respiratory Effort Cardiovascular: Regular Rate, Regular Rhythm - Allergies Allergies/Adverse Reactions: Allergies Allergy/AdvReac Type Severity Reaction Status Date / Time amoxicillin Allergy Hives Verified 01/10/21 11:59 hydrocodone Allergy Hives Verified 01/10/21 11:59 hydromorphone [From Dilaudid] Allergy Hives Verified 01/10/21 11:59 oxycodone Allergy Hives Verified 01/10/21 11:59 tramadol Allergy Hives Verified 01/10/21 11:59 - Blood Blood Available: No - Anesthesia Plan Pre-Op Medication Ordered: None - Acknowledgements Anesthesia Type Planned: General Anesthesia (tiva) Pt an Appropriate Candidate for the Planned Anesthesia: Yes Alternatives and Risks of Anesthesia Discussed w Pt/Guardian: Yes Pt/Guardian Understands and Agrees with Anesthesia Plan: Yes PreAnesthesia Questionnaire HEENT History: Reports: Other (See Below) Other HEENT History: wears glasses Cardiovascular History: Reports: High Cholesterol, Hypertension Other Cardiovascular History: recent hospital admission due to syncopal episode Respiratory History: Reports: None Gastrointestinal History: Reports: Colon Polyp, Diverticulosis, Hemorrhoids Other Gastrointestinal History: occasional heartburn Genitourinary History: Reports: None Musculoskeletal History: Reports: Other (See Below) Other Musculoskeletal History: occasional back pain Neurological History: Reports: None Psychiatric History: Reports: None Endocrine/Metabolic History: Reports: Obesity/BMI 30+ Hematologic History: Reports: Anemia Immunologic History: Reports: None Oncologic (Cancer) History: Reports: None Dermatologic History: Reports: None - Infectious Disease History Infectious Disease History: Reports: Chicken Pox - Past Surgical History Head Surgeries/Procedures: Reports: None HEENT Surgical History: Reports: None Cardiovascular Surgical History: Reports: None Respiratory Surgical History: Reports: None GI Surgical History: Reports: Colonoscopy, Hernia, Inguinal Male Surgical History: Reports: None Endocrine Surgical History: Reports: None Neurological Surgical History: Reports: None Musculoskeletal Surgical History: Reports: Other (See Below) Other Musculoskeletal Surgeries/Procedures:: bicep tendon repair, ulnar shortening, later hardware removal Oncologic Surgical History: Reports: None Dermatological Surgical History: Reports: None - SUBSTANCE USE Tobacco Use Status *Q: Former Tobacco User Tobacco Use Within Last Twelve Months: No - HOME MEDS Home Medications: Home Meds Rosuvastatin Calcium 20 mg PO DAILY 12/12/20 [History] Omeprazole Magnesium [Prilosec Otc] 20 mg PO DAILY #30 tab 12/14/20 [Rx] Diclofenac Sodium [Voltaren 1% Gel] 1 applic TOP ASDIRECTED PRN 01/10/21 [History] Ferrous Sulfate 325 mg PO TID 01/10/21 [History] Pantoprazole Sodium [Protonix] 20 mg PO DAILY 01/10/21 [History] amLODIPine [Norvasc] 5 mg PO DAILY 01/10/21 [History] carvediloL [Carvedilol] 0.5 tab PO BID 01/10/21 [History] - CURRENT (IN HOUSE) MEDS Current Meds: Current Medications Lactated Ringer's (Ringers, Lactated) 1,000 mls @ 125 mls/hr IV ASDIRECTED [facility] Last Admin: 01/14/21 08:20 Dose: 125 mls/hr Documented by: Discontinued Medications Lidocaine (Xylocaine-Mpf 2%) Confirm Administered Dose 5 ml .ROUTE .STK-MED ONE Stop: 01/14/21 07:29 Propofol (Diprivan 20 Ml) Confirm Administered Dose 400 mg .ROUTE .STK-MED ONE Stop: 01/14/21 07:27
[2021-01-14] MEDS ORDERED: Propofol 200 MG/20 ML SDV ONE ×2 (09:51→10:05)
[2021-01-14] MEDS ORDERED: Lactated Ringers 1,000 ML IV SCH (10:30)
--- NOTE | 2021-01-14 10:34 | PCM.OPNOTE ---
- General Post-Op/Procedure Note Date of Surgery/Procedure: 01/14/21 Operative Procedure(s): EGD w/ biopsy of stomach and esophagus. Colonoscopy Pre Op Diagnosis: New-onset anemia. Heartburn. History of colon polyps. Diverticulosis. Post-Op Diagnosis: Mild chronic gastritis with distal esophagitis. Pancolonic diverticulosis. Anesthesia Technique: MAC (ASA II) Primary Surgeon: Carlos Reece Personal Protection Specialist: Cassie Cohen Condition: Good Free Text/Narrative:: DICTATION [id number] CPT CODE [id number]
--- NOTE | 2021-01-14 11:53 | OR ---
SURGEON: Carlos Reece M.D. DATE OF PROCEDURE: 01/14/2021 OPERATION PERFORMED: Colonoscopy. PRIMARY SURGEON: Carlos Reece M.D. MACHINE CLOTH TRIMMER: TRACI Jensen student. ANESTHESIA: MAC. ASA CLASSIFICATION: II. PREOPERATIVE DIAGNOSES: 1. Anemia. 2. History of colon polyps. 3. Diverticulosis. POSTOPERATIVE DIAGNOSES: 1. Pancolonic diverticulosis. 2. Internal hemorrhoids. DESCRIPTION OF PROCEDURE: With the patient having completed upper GI endoscopy, he was maintained in the left lateral decubitus position. The colonoscope was now inserted into the rectum and advanced with minimal difficulty to the cecum. I was not able to retroflex the colonoscope in the cecum. The colonoscope was slowly withdrawn. The patient did demonstrate pancolonic diverticular changes. The cecum, ascending colon, hepatic flexure, transverse colon, splenic flexure, descending colon, sigmoid colon, and rectum were quite well visualized. No tumors or polyps were seen. There did appear to be some mild inflammatory changes in the sigmoid colon, which was the area of most significant diverticular change. Again, no stricture or spasm was noted. The colonoscope was withdrawn to the distal rectum and retroflexed to visualize the anal orifice from above. The patient did demonstrate hemorrhoids, although no acute bleeding hemorrhoids were noted. The colonoscope was then straightened, the rectum aspirated, and the colonoscope removed. The patient tolerated the procedure well and was taken to recovery room in stable condition. FELICITA / FELIX /[id number]
--- NOTE | 2021-01-14 12:17 | PCM.POSTAN ---
POST ANESTHESIA ASSESSMENT - MENTAL STATUS Mental Status: Alert, Oriented - VITAL SIGNS Vital Signs: Last Vital Signs Temp 96.8 F L 01/14/21 10:34 Pulse 74 01/14/21 10:34 Resp 14 01/14/21 10:34 BP 131/74 01/14/21 10:34 Pulse Ox 95 01/14/21 10:34 - RESPIRATORY Respiratory Status: Respiratory Rate WNL, Airway Patent, O2 Saturation Stable - CARDIOVASCULAR CV Status: Pulse Rate WNL, Blood Pressure Stable - GASTROINTESTINAL GI Status: No Symptoms - POST OP HYDRATION Hydration Status: Adequate & Stable
--- NOTE | 2021-01-14 12:17 | PCM48HPAN ---
Post Anesthesia Note - EVALUATION WITHIN 48HRS OF ANESTHETIC Vital Signs in Normal Range: Yes Patient Participated in Evaluation: Yes Respiratory Function Stable: Yes Airway Patent: Yes Cardiovascular Function Stable: Yes Hydration Status Stable: Yes Pain Control Satisfactory: Yes Nausea and Vomiting Control Satisfactory: Yes Mental Status Recovered: Yes Vital Signs: Last Vital Signs Temp 96.8 F L 01/14/21 10:34 Pulse 74 01/14/21 10:34 Resp 14 01/14/21 10:34 BP 131/74 01/14/21 10:34 Pulse Ox 95 01/14/21 10:34
--- NOTE | 2021-01-14 12:59 | OR ---
SURGEON: Carlos Reece M.D. DATE OF PROCEDURE: 01/14/2021 OPERATION PERFORMED: Esophagogastroduodenoscopy with gastric and esophageal biopsies. PRIMARY SURGEON: Carlos Reece MD ANESTHESIA: MAC. VENDING STAND SUPERVISOR: TRACI Jensen Student. ASA CLASSIFICATION: II. PREOPERATIVE DIAGNOSES: 1. New-onset anemia. 2. Heartburn. POSTOPERATIVE DIAGNOSES: 1. Mild chronic gastritis. 2. Distal esophagitis with possible Robert's changes. DESCRIPTION OF PROCEDURE: The patient was taken to the endoscopy room, positioned on the endoscopy table in the left lateral decubitus position. Time-out was called for appropriate identification of the patient and procedure. Monitored anesthesia care was provided. The bite block was placed between the patient's teeth. The gastroscope was inserted through the bite block into the oropharynx and advanced without difficulty through the esophagus and stomach into the duodenum where examination was now carried out in a retrograde fashion. The duodenum showed no acute inflammatory changes or ulcerations. The stomach did show mild-to- moderate chronic gastritis. Antral biopsies were obtained to look for the presence of Helicobacter pylori. The gastroscope was retroflexed to visualize the proximal stomach. No acute lesions were identified. The gastroscope was then slowly withdrawn. 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 Separate biopsies of this area were obtained. This was at 38 cm from the incisors. The mid and proximal esophagus showed no acute lesions. The esophagus itself demonstrated good contractility. The vocal cords were visualized as the scope was withdrawn and noted to move symmetrically. The gastroscope was then removed with the patient having tolerated this portion of the procedure well. Following colonoscopy, he was taken to recovery room in stable condition. FELICITA / FELIX /[id number]
== END 2021-01-14 11:05 | disposition home or self-care (01) ==
LOC: MW.SDS 07:58
PROVIDERS: ATTEND Surgery
DX: K29.50 Unspecified chronic gastritis without bleeding (principal); K20.90 Esophagitis, unspecified without bleeding; K57.30 Diverticulosis of large intestine without perforation or abscess without bleeding; K64.8 Other hemorrhoids; D64.9 Anemia, unspecified; I10 Essential (primary) hypertension; E78.00 Pure hypercholesterolemia, unspecified; E66.9 Obesity, unspecified; Z68.32 Body mass index [BMI] 32.0-32.9, adult; F17.210 Nicotine dependence, cigarettes, uncomplicated; Z88.1 Allergy status to other antibiotic agents; Z88.5 Allergy status to narcotic agent; Z88.8 Allergy status to other drugs, medicaments and biological substances; Z86.010 Personal history of colon polyps; Z98.890 Other specified postprocedural states
CPT/HCPCS: 43239; 45378; 88305; 88312; J2704; J7120

== ENCOUNTER 2023-03-26 16:53 | Emergency (ER) | payer BC ==
[2023-03-26 18:00] LABS: APPEARANCE,URINE CLEAR; BILIRUBIN,URINE NEGATIVE (NEGATIVE); COLOR,URINE YELLOW; GLUCOSE,URINE 100 mg/dL (NEGATIVE); KETONES,URINE NEGATIVE (NEGATIVE); LEUKOCYTE ESTERASE,URINE NEGATIVE (NEGATIVE); NITRITE,URINE NEGATIVE (NEGATIVE); OCCULT BLOOD,URINE TRACE-INTACT (NEGATIVE); PH,URINE 7.5 (5.0-8.0); PROTEIN,URINE 100 mg/dL (NEGATIVE); UROBILINOGEN,URINE 0.2 EU/dL (<2.0)
[2023-03-26] MEDS ORDERED: Sodium Chloride 0.9% 10 ML Syringe FLUSH PRN (18:14)
[2023-03-26] MEDS ORDERED: Sodium Chloride 0.9% 2.5 ML Syringe FLUSH PRN (18:14)
[2023-03-26 18:20] LABS: BACTERIA,URINE FEW (NEGATIVE); EPITHELIAL CELLS,URINE RARE (NONE-FEW); RBC,URINE 0-1 (0-2/HPF); WBC,URINE 0-4 (0-5/HPF)
[2023-03-26 18:32] LABS: BASOPHILS ABSOLUTE AUTO 0.1 K/uL (0.0-0.1); BASOPHILS PERCENT AUTO 0.9 % (0.0-1.5); EOSINOPHILS ABSOLUTE AUTO 0.2 K/uL (0.0-0.7); EOSINOPHILS PERCENT AUTO 3.1 % (0.0-7.0); HEMATOCRIT 32.6 % (38.0-50.0); HEMOGLOBIN 10.9 g/dL (13.0-17.0); LYMPHOCYTES ABSOLUTE AUTO 0.9 K/uL (0.6-2.4); LYMPHOCYTES PERCENT AUTO 15.2 % (16.0-40.0); MEAN CORPUSCULAR HEMOGLOBIN 32.5 pg (27.0-32.0); MEAN CORPUSCULAR HGB CONC 33.4 g/dL (31.0-37.0); MEAN CORPUSCULAR VOLUME 97.3 fL (80.0-98.0); MONOCYTES ABSOLUTE AUTO 0.9 K/uL (0.0-0.8); MONOCYTES PERCENT AUTO 16.2 % (0.0-15.0); NEUTROPHILS ABSOLUTE AUTO 3.7 K/uL (1.4-5.7); NEUTROPHILS PERCENT AUTO 64.6 % (48.0-80.0); NRBC ABSOLUTE 0 K/uL; PLATELET COUNT,PLT 164 K/uL (150-400); RED BLOOD CELL COUNT 3.35 M/uL (4.50-5.90); WHITE BLOOD CELL COUNT,WBC 5.74 K/uL (4.0-11.0)
[2023-03-26 18:53] LABS: A/G RATIO 0.7 (0.9-1.6); ALBUMIN 2.9 g/dL (3.4-5.0); BILIRUBIN TOTAL 0.4 mg/dL (0.2-1.0); CALCIUM 8.6 mg/dL (8.5-10.1); CARBON DIOXIDE,CO2 17.8 mmol/L (21.0-32.0); CREATININE 8.4 mg/dL (0.8-1.3); EST CRCL DRUG DOSING (CG) 7.93 mL/min; PROTEIN TOTAL,TP 6.9 g/dL (6.4-8.2)
== END 2023-03-26 19:30 ==
LOC: MW.ED 16:53
DX: N17.9 Acute kidney failure, unspecified (principal); I10 Essential (primary) hypertension; E78.00 Pure hypercholesterolemia, unspecified; E66.9 Obesity, unspecified; Z68.34 Body mass index [BMI] 34.0-34.9, adult; Z88.0 Allergy status to penicillin; Z88.5 Allergy status to narcotic agent; Z79.899 Other long term (current) drug therapy
CPT/HCPCS: 36415; 80053; 81001; 85025; 99284; J3490; 99285

== ENCOUNTER 2025-04-14 11:28 | Emergency (ER) | payer BC | END 2025-04-14 15:02 | disposition home or self-care (01) | LOC: MW.ED 11:28 | DX: S83.92XA Sprain of unspecified site of left knee, initial encounter (principal); I10 Essential (primary) hypertension; E78.00 Pure hypercholesterolemia, unspecified; Z88.0 Allergy status to penicillin; Z88.5 Allergy status to narcotic agent; Z88.8 Allergy status to other drugs, medicaments and biological substances; Z79.899 Other long term (current) drug therapy; X58.XXXA Exposure to other specified factors, initial encounter; Y99.0 Civilian activity done for income or pay | CPT/HCPCS: 73562-26-LT; 73562-LT; 99282; 99283 ==

== ENCOUNTER 2025-05-27 06:46 | Day surgery (SDC) | payer OTHER ==
[2025-05-27] MEDS: Lactated Ringers 1,000 ML IV SCH (07:25)
[2025-05-27] MEDS ORDERED: fentaNYL 100 MCG/2 ML SDV ONE (07:26)
[2025-05-27] MEDS ORDERED: Midazolam 1 MG/ML 2 ML SDV ONE (07:26)
[2025-05-27] MEDS ORDERED: Propofol 200 MG/20 ML SDV ONE (07:26)
[2025-05-27] MEDS ORDERED: Bupivacaine 0.5%/EPINEPHrine 1:200,000 30 ML SDV ONE (07:34)
[2025-05-27] MEDS ORDERED: ceFAZolin 2 GM in Water For Injection, Sterile 20 ML IVPUSH ONE (08:00)
[2025-05-27] MEDS ORDERED: Albuterol 0.083% 2.5 MG/3 ML Neb Soln NEB PRN (08:24)
[2025-05-27] MEDS ORDERED: Ondansetron 4 MG/2 ML SDV IVPUSH PRN (08:24)
[2025-05-27] MEDS ORDERED: fentaNYL 50 MCG/ML SDV IVPUSH PRN (08:24)
[2025-05-27] MEDS ORDERED: Naloxone 0.4 MG/ML SDV IVPUSH PRN (08:24)
[2025-05-27] MEDS ORDERED: Ketorolac 30 MG/ML SDV ONE (08:28)
[2025-05-27] MEDS ORDERED: Dexamethasone 4 MG/ML 5 ML MDV ONE (08:28)
[2025-05-27] MEDS ORDERED: ePHEDrine 50 MG/ML SDV ONE (08:32)
== END 2025-05-27 09:58 | disposition home or self-care (01) ==
LOC: MW.SDS 06:46
PROVIDERS: ATTEND Orthopaedic Surgery
DX: S83.232A Complex tear of medial meniscus, current injury, left knee, initial encounter (principal); M17.12 Unilateral primary osteoarthritis, left knee; I10 Essential (primary) hypertension; E78.00 Pure hypercholesterolemia, unspecified; K21.00 Gastro-esophageal reflux disease with esophagitis, without bleeding; F17.200 Nicotine dependence, unspecified, uncomplicated; Z79.899 Other long term (current) drug therapy; X58.XXXA Exposure to other specified factors, initial encounter
CPT/HCPCS: 29881; J0690; J1100; J1885; J2003; J2250; J2704; J3010; J7120; J0665; J3490